=== PATIENT | female | born 1985 | race Caucasian/White ===

== ENCOUNTER → 2017-10-07 | Outpatient (CLI) | payer OTHER ==
[~2017-10-07] MED LIST: AMOXICILLIN500 MG PO; COLACE100 MG PO; IRON PO; IRON325 M1 PO; MOTRIN800 MG PO; PERCOCET 325 MG1 TA2 PO; PRENATAL1 TA1 PO; ULTRAM50 MG PO
[2017-10-07 07:21] LABS: HEMATOCRIT 37.9 % (37.0-47.0); MEAN CELL VOLUME 86.7 fl (81.0-99.0); MEAN CORPUSCULAR HGB 29.7 pg (27.0-31.0); MEAN CORPUSCULAR HGB CONC 34.3 g/dl (33.0-37.0); MEAN PLATELET VOLUME 9.7 fl (9.6-12.3); RED BLOOD COUNT 4.37 10*6/uL (4.10-5.10); RED CELL DISTRI WIDTH 12.6 % (0-14.5); WHITE BLOOD COUNT 6.2 10*3/uL (4.8-10.8)
[2017-10-07 07:57] LABS: ALBUMIN 4.1 gm/dl (3.1-4.5); ALKALINE PHOSPHATASE 57 U/L (45-117); BUN 15 mg/dl (7-24); CHLORIDE 106 mmol/L (98-107); CHOLESTEROL 155 mg/dL (<200); HDL CHOLESTEROL 43 mg/dl (40-60); LDL CHOLESTEROL 98 mg/dL (9-159); POTASSIUM 4.2 mmol/L (3.5-5.1); SGOT/AST 21 IU/L (3-35); SGPT/ALT 33 U/L (12-78); SODIUM 139 mmol/L (136-145); TRIGLYCERIDES 72 mg/dl (<150); VLDL CHOLESTEROL 14 mg/dL (6-40)
== END ==
LOC: LAB 06:57
PROVIDERS: Family Medicine
DX: Z13.220 Encounter for screening for lipoid disorders (principal); E78.00 Pure hypercholesterolemia, unspecified; E66.9 Obesity, unspecified; R79.89 Other specified abnormal findings of blood chemistry

== ENCOUNTER → 2019-03-02 | Outpatient (CLI) | payer OTHER ==
[~2019-03-02] MED LIST changes: +PREDNISONE10 MG PO; +ZOLOFT25 MG PO
[2019-03-02 07:20] LABS: HEMATOCRIT 40.6 % (37.0-47.0); HEMOGLOBIN 13.5 g/dl (12.0-16.0); MEAN CELL VOLUME 86.6 fl (81.0-99.0); MEAN CORPUSCULAR HGB 28.8 pg (27.0-31.0); MEAN CORPUSCULAR HGB CONC 33.3 g/dl (33.0-37.0); MEAN PLATELET VOLUME 9.4 fl (9.6-12.3); RED BLOOD COUNT 4.69 10*6/uL (4.10-5.10); RED CELL DISTRI WIDTH 12.6 % (0-14.5); WHITE BLOOD COUNT 7.3 10*3/uL (4.8-10.8)
[2019-03-02 07:37] LABS: ALBUMIN 3.8 gm/dl (3.1-4.5); ALKALINE PHOSPHATASE 59 U/L (45-117); BUN 12 mg/dl (7-24); CHLORIDE 107 mmol/L (98-107); CHOLESTEROL 165 mg/dL (<200); CREATININE 0.75 mg/dL (0.55-1.02); HDL CHOLESTEROL 47 mg/dl (40-60); LDL CHOLESTEROL 99 mg/dL (9-159); POTASSIUM 4.1 mmol/L (3.5-5.1); SGOT/AST 11 IU/L (3-35); SGPT/ALT 27 U/L (12-78); SODIUM 140 mmol/L (136-145); TRIGLYCERIDES 96 mg/dl (<150); VLDL CHOLESTEROL 19 mg/dL (6-40)
== END | disposition home or self-care (01) ==
LOC: LAB 06:56
PROVIDERS: Nurse Practitioner Family
DX: F41.1 Generalized anxiety disorder (principal); R53.83 Other fatigue; R63.5 Abnormal weight gain; E74.00 Glycogen storage disease, unspecified

== ENCOUNTER 2019-03-23 18:24 | Inpatient (IN) | payer OTHER ==
[~2019-03-23] VITALS: Ht 162.6 cm; Wt 114.4 kg
[2019-03-23 18:24] VITALS: BP 123/67
[~2019-03-23 18:24] MED LIST changes: -PREDNISONE10 MG PO; -ZOLOFT25 MG PO
[2019-03-23 18:54] LABS: BASO % 0.3 % (0.0-1.0); EOS % 0.2 % (1.0-4.0); HEMATOCRIT 41.4 % (37.0-47.0); HEMOGLOBIN 13.8 g/dl (12.0-16.0); LYMPH # 1.3 10*3/uL (1.3-4.4); LYMPH % 11.6 % (27.0-41.0); MEAN CELL VOLUME 85.9 fl (81.0-99.0); MEAN CORPUSCULAR HGB 28.6 pg (27.0-31.0); MEAN CORPUSCULAR HGB CONC 33.3 g/dl (33.0-37.0); MEAN PLATELET VOLUME 9.5 fl (9.6-12.3); MONO # 0.3 10*3/uL (0.1-1.0); MONO % 2.4 % (3.0-9.0); NEUT # 9.7 10*3/uL (2.3-7.9); NEUT % 85.1 % (47.0-73.0); PLATELET COUNT AUTOMATED 329 10*3/uL (130-400); RED BLOOD COUNT 4.82 10*6/uL (4.10-5.10); WHITE BLOOD COUNT 11.4 10*3/uL (4.8-10.8)
[2019-03-23 19:08] LABS: ACT PARTIAL THROMBO TIME 25.6 SECONDS (20.0-32.1); INTERNATIONAL NORM RATIO 0.9 (2.0-3.5)
[2019-03-23 19:17] LABS: ALBUMIN 3.9 gm/dl (3.1-4.5); BUN 12 mg/dl (7-24); CHLORIDE 107 mmol/L (98-107); SGOT/AST 10 IU/L (3-35); SGPT/ALT 35 U/L (12-78); SODIUM 136 mmol/L (136-145); TOTAL PROTEIN 8.3 gm/dL (6.4-8.2)
[2019-03-23 19:20] LABS: ALKALINE PHOSPHATASE 51 U/L (45-117); TROPONIN I < 0.015 ng/ml (<0.045)
[2019-03-23 20:46] VITALS: BP 99/56
[2019-03-23 22:04] VITALS: BP 102/60
[2019-03-23 22:30] VITALS: BP 126/61
--- NOTE | 2019-03-23 22:30 | NUR ---
A 33, admitted to 5E, under the services of FELIPA Hearn MD with a diagnosis of ANXIETY CHEST PAIN. Chief complaint is CHEST PAIN. Patient arrived via bed from ER. Monitor applied. Initial assessment completed. Vital signs taken and recorded. FELIPA HEARN MD notified of admission to the unit. Orders received. See assessment for past medical history, medications and allergies. Patient and/or family oriented to unit. [facility] visitation policy reviewed. Clothing/patient valuable form completed. [employer]
[2019-03-23] MEDS ORDERED: ZOLOFT25 MG PO (23:04)
[2019-03-23] MEDS ORDERED: PREDNISONE10 MG PO (23:04)
--- NOTE | 2019-03-23 23:50 | NUR ---
SPOKE WITH [facility] ANSWERING SERVICE NOTIFIED OF CARDIOLOGY CONSULT FOR DR. OCHOA.
[2019-03-24] VITALS: BP 118/60
--- NOTE | 2019-03-24 00:10 | NUR ---
PATIENT MEDICATED WITH DILAUDID PER PRN ORDER FOR C/O CHEST PAIN AND HEADACHE. SEE EMAR. REINFORCED USE OF CALL LIGHT.
--- NOTE | 2019-03-24 01:56 | NUR ---
PATIENT RESTING QUIETLY . NO FURTHER C/O VOICED.
--- NOTE | 2019-03-24 05:45 | NUR ---
PATIENT MEDICATED WITH TORDOL PER PRN ORDER AND PATIENT REQUEST FOR C/O HEADACHE . SEE EMAR. REINFORCED USE OF CALL LIGHT
[2019-03-24 08:00] VITALS: BP 110/70
--- NOTE | 2019-03-24 09:43 | NUR ---
PATIENT MEDICATED WITH IV DILAUDID AT THIS TIME PER ORDER FOR COMPLAINTS OF CHEST PAIN TO THE LEFT SIDE 12/13 & HEADACHE. WILL MONITOR FOR EFFECTIVENESS.
--- NOTE | 2019-03-24 10:30 | NUR ---
PER PATIENT, PAIN MEDICATION HAS BEEN EFFECTIVE. NO FURTHER COMPLAINTS AT THIS TIME.
[2019-03-24 12:00] VITALS: BP 110/65
[2019-03-24 16:00] VITALS: BP 101/67
--- NOTE | 2019-03-24 16:30 | NUR ---
Discharge instructions reviewed with patient/family. Patient receptive and verbalizes understanding. Follow-up care arranged. Written instructions given to patient/family. [employer] REMOVED. PT AWARE TO FOLLOW UP WITH CARIDOLOGY. TED SOW
== END 2019-03-24 16:30 | disposition home or self-care (01) | DRG 206 ==
LOC: ED 18:24 → EDHOLD 21:24 → 5E 21:59
PROVIDERS: Nurse Practitioner; ADMIT Internal Medicine
DX: M94.0 Chondrocostal junction syndrome [Tietze] (principal); F41.9 Anxiety disorder, unspecified; R73.9 Hyperglycemia, unspecified; Z91.013 Allergy to seafood; Z83.3 Family history of diabetes mellitus; Z90.49 Acquired absence of other specified parts of digestive tract; Z90.710 Acquired absence of both cervix and uterus